=== PATIENT | female | born 1985 | race Caucasian/White ===

== ENCOUNTER 2019-09-16 14:14 | Outpatient (CLI) | payer OTHER, SELFPAY ==
[2019-09-16 14:27] LABS: Hematocrit 43.3 % (35.0-49.0); Hemoglobin 14.2 g/dL (12.0-15.0); Mean Corpuscular HGB Conc 32.8 g/dL (32.0-36.0); Mean Corpuscular Hemoglobin 29.3 pg (27.0-31.0); Mean Corpuscular Volume 89.3 fL (78.0-102.0); Mean Platelet Volume 9.8 fl (9.2-11.8); Platelet Count Result 256 K/mm3 (150-420); Red Blood Count 4.85 M/mm3 (4.20-5.40); White Blood Count 7.7 K/mm3 (4.8-10.8)
[2019-09-16 15:01] LABS: Anion Gap 11.3 mmol/L (7-16); Blood Urea Nitrogen 12 mg/dL (7-18); Calcium 9.5 mg/dL (8.5-10.1); Carbon Dioxide 31 mmol/L (21-32); Chloride 105 mmol/L (98-108); Estimated Glomerular Filt Rate > 60; Glucose 88 mg/dL (70-99); Osmolality Calculated 294 mOsm/kg (285-295); Potassium 4.3 mmol/L (3.5-5.1); Sodium 143 mmol/L (136-145)
== END 2019-09-16 14:15 | disposition home or self-care (01) ==
LOC: CHSLAB 14:19
PROVIDERS: PCP Family Medicine; Visit Provider Family Medicine
DX: Z01.818 Encounter for other preprocedural examination (principal)
CPT/HCPCS: 36415; 80048; 85027

== ENCOUNTER 2021-05-24 12:50 | Outpatient (CLI) | payer OTHER, SELFPAY ==
--- NOTE | ~2021-05-24 | XR_ITS ---
XR chest 2V DATE: 05/24/2021 13:14 INDICATION: Shortness of breath. Covid-positive. TECHNIQUE: PA and lateral views COMPARISON: 08/20/2017 PA and lateral chest FINDINGS: There is bilateral hyperinflation suggesting obstructive airways disease. There are numerous calcified pulmonary granulomas scattered throughout both lungs as well as bilatera l calcified hilar and mediastinal nodes. No pulmonary infiltrate or consolidation, pleural effusion or pulmonary vascular congestion or pneumo thorax. Included skeletal structures are unremarkable. IMPRESSION: Bilateral hyperinflation suggesting obstructive airways disease Old pulmonary granulomatous disease Reviewed, dictated and finalized at location A. 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
== END 2021-05-24 12:51 | disposition home or self-care (01) ==
LOC: CHSIMG 12:53
PROVIDERS: PCP Nurse Practitioner Family; Visit Provider Nurse Practitioner Family
DX: R06.02 Shortness of breath (principal); U07.1 COVID-19
CPT/HCPCS: 71046

== ENCOUNTER 2022-08-09 10:27 | Outpatient (CLI) | payer OTHER, SELFPAY ==
[2022-08-09 10:53] LABS: Basophils Absolute Auto 0.03 K/mm3 (0.00-0.10); Basophils Percent Auto 0.4 % (0.0-1.0); Eosinophils Percent Auto 1.4 % (1.0-6.0); Hematocrit 41.5 % (35.0-49.0); Hemoglobin 13.6 g/dL (12.0-15.0); Immature Granulocyte Absolute 0.02 K/mm3 (0.00-0.00); Immature Granulocyte Percent A 0.3 % (0.0-0.0); Lymphocytes Absolute Auto 2.24 K/mm3 (1.10-4.50); Lymphocytes Percent Auto 30.3 % (18.0-42.0); Mean Corpuscular HGB Conc 32.8 g/dL (32.0-36.0); Mean Corpuscular Hemoglobin 28.9 pg (27.0-31.0); Mean Corpuscular Volume 88.1 fL (78.0-102.0); Mean Platelet Volume 9.6 fl (9.2-11.8); Monocytes Absolute Auto 0.54 K/mm3 (0.10-0.90); Monocytes Percent Auto 7.3 % (2.0-11.0); Neutrophils Absolute Auto 4.5 K/mm3 (1.7-7.2); Neutrophils Percent Auto 60.3 % (50.0-70.0); Platelet Count Result 281 K/mm3 (150-420); Red Blood Count 4.71 M/mm3 (4.20-5.40); Red Cell Distribution Width 13.2 % (11.6-14.4); White Blood Count 7.4 K/mm3 (4.8-10.8)
[2022-08-09 11:34] LABS: Alanine Aminotransferase 35 U/L (14-59); Albumin Level 4.1 g/dL (3.4-5.0); Alkaline Phosphatase 80 U/L (46-116); Anion Gap 7 mmol/L (8-16); Aspartate Amino Transferase 21 U/L (15-37); Bilirubin,Total 0.5 mg/dL (0.00-1.00); Blood Urea Nitrogen 16 mg/dL (7-18); Calcium 9.1 mg/dL (8.5-10.1); Carbon Dioxide 28 mmol/L (21-32); Chloride 104 mmol/L (98-108); Cholesterol 175 mg/dL (0-200); Estimated Glomerular Filt Rate > 60; Free T4 Free Thyroxine 1.07 ng/dL (0.76-1.46); Glucose 87 mg/dL (70-99); HDL Direct 77 mg/dL (40-60); LDL Cholesterol Calculated 91 mg/dL (<130); Osmolality Calculated 288 mOsm/kg (285-295); Potassium 4.5 mmol/L (3.5-5.1); Sodium 139 mmol/L (136-145); Thyroid Stimulating Hormone 2.34 uIU/mL (0.36-3.74); Total Protein 6.9 g/dL (6.4-8.2); Triglycerides 34 mg/dL (0-150)
[2022-08-09 14:45] LABS: Ferritin 24 ng/mL (8-252); Folic Acid 11.9 ng/mL (8.6->20); Iron 65 ug/dL (50-170); Percent Iron Saturation 18 % (12-57)
[2022-08-12 04:13] LABS: Thyroid Peroxidase Antibodies <1 IU/mL (<9)
[2022-08-13 12:59] LABS: Testosterone Total 13 ng/dL (2-45)
[2022-08-14 20:46] LABS: Vitamin D 25 Hydroxy 30 ng/mL (30-100)
[2022-08-15 00:42] LABS: Estradiol, Ultrasensitive 55 pg/mL
== END 2022-08-09 10:28 | disposition home or self-care (01) ==
LOC: CHSLAB 10:30
PROVIDERS: PCP Family Medicine
DX: F41.9 Anxiety disorder, unspecified (principal); R53.83 Other fatigue; G47.00 Insomnia, unspecified; R68.82 Decreased libido; N95.1 Menopausal and female climacteric states; G47.9 Sleep disorder, unspecified
CPT/HCPCS: 36415; 80053; 80061; 82306; 82670; 82728; 82746; 83540; 83550; 84144; 84403; 84439; 84443; 84481; 85025; 86376

== ENCOUNTER 2022-09-22 14:20 | Outpatient (CLI) | payer OTHER, SELFPAY | END 2022-09-22 14:21 | disposition home or self-care (01) | LOC: CHSLAB 14:23 | PROVIDERS: PCP Family Medicine | DX: R53.83 Other fatigue (principal); R68.82 Decreased libido; N95.1 Menopausal and female climacteric states | CPT/HCPCS: 36415; 83001; 83002 ==

== ENCOUNTER 2023-02-13 07:36 | Outpatient (CLI) | payer OTHER, SELFPAY ==
--- NOTE | ~2023-02-13 | US_ITS ---
EXAMINATION: US abdomen complete DATE: 02/13/2023 08:41 INDICATION: Right upper quadrant abdominal pain. TECHNIQUE: Multiple grayscale and Doppler ultrasound images of the abdomen were obtained. COMPARISON: None FINDINGS: The visualized portions of the head, body, and tail of the pancreas are normal. The liver i s normal without focal lesion. There is normal flow in main portal vein. The gallbladder is contracte d. No gallstones or sonographic Villalobos sign. The common duct is normal and measures 2 mm. The kidneys are normal in size. The spleen is normal in size. The abdominal aorta is normal. The inferior vena c jessica is normal. IMPRESSION: 1. Normal complete abdomen ultrasound. Reviewed, dictated and finalized at location A.
--- NOTE | ~2023-02-13 | US_ITS ---
EXAMINATION: US transvaginal DATE: 02/13/2023 08:41 INDICATION: Pelvic and perineal pain. TECHNIQUE: Multiple transvaginal sonographic images of the pelvis were obtained. COMPARISON: None. FINDINGS: The uterus measures 7.8 x 5.6 x 4.7 cm. There is no free fluid in the pelvis. The endometrial complex measures 15 mm in thickness. There are nabothian cysts in the cervix. The right ovary measures 3.5 x 1.8 x 1.8 cm. The left ovary measures 1.9 x 1.6 x 1.8 cm. There is normal vascular flow in the ovari es. IMPRESSION: 1. No etiology for the patient's symptoms. Reviewed, dictated and finalized at location A.
== END 2023-02-13 07:37 | disposition home or self-care (01) ==
PROVIDERS: PCP Family Medicine; Visit Provider Nurse Practitioner Family
DX: R10.11 Right upper quadrant pain (principal); T78.40XA Allergy, unspecified, initial encounter
CPT/HCPCS: 36415; 76700; 76830; 82785; 86003

== ENCOUNTER 2023-03-01 09:04 | Outpatient (CLI) | payer OTHER, SELFPAY ==
[2023-03-01 09:21] LABS: Hematocrit 40.4 % (35.0-49.0); Hemoglobin 12.9 g/dL (12.0-15.0); Mean Corpuscular HGB Conc 31.9 g/dL (32.0-36.0); Mean Corpuscular Hemoglobin 28.4 pg (27.0-31.0); Mean Platelet Volume 9.5 fl (9.2-11.8); Platelet Count Result 294 K/mm3 (150-420); Red Blood Count 4.54 M/mm3 (4.20-5.40); Red Cell Distribution Width 12.6 % (11.6-14.4); White Blood Count 6.8 K/mm3 (4.8-10.8)
[2023-03-01 09:41] LABS: Alanine Aminotransferase 31 U/L (14-59); Albumin Level 3.9 g/dL (3.4-5.0); Alkaline Phosphatase 62 U/L (46-116); Anion Gap 8 mmol/L (8-16); Aspartate Amino Transferase 14 U/L (15-37); Bilirubin,Total 0.6 mg/dL (0.00-1.00); Blood Urea Nitrogen 18 mg/dL (7-18); Calcium 9.4 mg/dL (8.5-10.1); Carbon Dioxide 30 mmol/L (21-32); Chloride 103 mmol/L (98-108); Estimated Glomerular Filt Rate > 60; Glucose 100 mg/dL (70-99); Osmolality Calculated 293 mOsm/kg (285-295); Potassium 4.5 mmol/L (3.5-5.1); Sodium 141 mmol/L (136-145); Total Protein 6.5 g/dL (6.4-8.2)
== END 2023-03-01 09:05 | disposition home or self-care (01) ==
LOC: CHSLAB 09:06
PROVIDERS: PCP Family Medicine; Visit Provider Nurse Practitioner Family
DX: R10.11 Right upper quadrant pain (principal)
CPT/HCPCS: 36415; 80053; 85027

== ENCOUNTER 2023-03-13 01:37 | Day surgery (SDC) | payer OTHER, SELFPAY ==
[2023-03-02 13:05] VITALS: BMI 20.5
--- NOTE | 2023-03-10 10:51 | SUR.PREOP ---
Patient called regarding upcoming procedure. Message left on her voicemail reviewed preop instructions and appointment times.
[2023-03-13 09:32] VITALS: BMI 21.7
[2023-03-13 09:35] VITALS: BP 126/89; PULSE 78; RESP 20; TEMP 36.4; O2SAT 100
--- NOTE | 2023-03-13 09:54 | WPDHPUPDATE1 ---
History and Physical Update Update Date/Time: 03/13/23 09:54 History and Physical has been reviewed, including an updated exam of the patient. There are NO changes in the patient's condition. Risks, benefits, and alternatives have been discussed and questions answered. Patient agrees to proceed with procedure.
[2023-03-13] MEDS: LACTATED RINGERS 1,000 ML 150 ML IV CONT (10:01)
[2023-03-13] MEDS: BENZOCAINE (*SP) 60 ML SPRAY CAN (HURRICAINE) 1 SPRAY MUCOUS MEM (10:04)
--- NOTE | 2023-03-13 10:07 | WPDANESEPPF ---
Anes - Initial Pre Proc Eval Procedure: Operation Date: 03/13/23 14:45 Proposed Procedures p Esophagogastroduodenoscopy - Jorge Luis Lewis MD Date/Time: 03/13/23 10:07 Surgeon: Jorge Luis Lewis MD Pre Op Diagnosis: Right Upper Quadrant Pain Patient Data Age: 37 Gender: F Height: 1.73 m Weight: 64.9 kg Last Vital Signs Temp 97.5 F L 03/13/23 09:35 Pulse 78 03/13/23 09:35 Resp 20 03/13/23 09:35 BP 126/89 03/13/23 09:35 Pulse Ox 100 03/13/23 09:35 O2 Del Method Room Air 03/13/23 09:35 Allergies Allergy/AdvReac Type Severity Reaction Status Date / Time clindamycin Allergy Unknown Unknown Verified 03/13/23 09:30 erythromycin base Allergy Unknown Unknown Verified 03/13/23 09:30 Home Medications Medication Instructions Recorded Confirmed Type black cohosh 200 mg capsule 200 mg PO DAILY 02/27/23 03/13/23 History cholecalciferol (vitamin D3) 100 100 mcg PO DAILY 02/27/23 03/13/23 History mcg (4,000 unit) tablet magnesium salicylate 325 mg tablet 325 mg PO DAILY 02/27/23 03/13/23 History omega 1-oei-wxg-fish oil 300 1 cap PO DAILY 02/27/23 03/13/23 History mg-1,000 mg capsule (Fish Oil) vit C 30 mg-s.peraza 250 mg-celery 1 cap PO DAILY 02/27/23 03/13/23 History seed 75 mg-grape seed extrt capsule (Tart Peraza) Patient hx anesthesia problems: none Family hx anesthesia problems: none Results Review: All pre-operative results and documents have been reviewed as part of the pre-operative evaluation. [facility] Past Medical History Medical History BRYSON (generalized anxiety disorder) Surgical History Surgical History No history of previous surgery Family History Family History Father Hypertension Social History Social History Smoking status: Never smoker Substance use: never Lack of Transportation: No Lack of Food: Never True Current Housing: I Have Housing Concerned About Future Housing: No Difficulty Paying Gas/Electric Bills: No Difficulty Paying for Meds: No Currently Unemployed: No Education: Master's Degree or Higher Difficulty w/ Childcare or Family Care: No Living arrangements: with family Additional living arrangements comments: . 2 Children. Occupation/Education: occupation Additional occupation/education comments: [employer] Final PreProcedure Day of Procedure 03/13/23 10:07 Patient weight: normal Heart: regular rate and rhythm Lungs: clear to auscultation Airway: Mallampati scale class II Neurological: alert and oriented Last oral intake: >/= 8 hours ASA classification: II Emergent: no Anesthetic plan: proceed Anesthesia type and monitoring: general GIVS and standard monitoring Results Review: All pre-operative results and documents have been reviewed as part of the pre-operative evaluation. Informed Consent: The patient's anesthetic plan and its attendant risks and benefits were discussed with the patient/family/POA. Questions were solicited and answers provided to the satisfaction of the patient/family/POA.
[2023-03-13 10:13] VITALS: BP 102/59; PULSE 77; RESP 20; O2SAT 99
[2023-03-13 10:23] VITALS: BP 103/67; PULSE 77; RESP 15; O2SAT 100
[2023-03-13 10:33] VITALS: BP 129/77; PULSE 79; RESP 18; O2SAT 100
== END 2023-03-13 10:36 | disposition home or self-care (01) ==
PROVIDERS: PCP Family Medicine; Visit Provider Internal Medicine Gastroenterology
PROC: 0DJ08ZZ Inspection of Upper Intestinal Tract, Via Natural or Artificial Opening Endoscopic (ICD-10-PCS; CPT 43235; principal; 2023-03-13 14:45)
DX: K29.70 Gastritis, unspecified, without bleeding (principal); K31.89 Other diseases of stomach and duodenum; F41.1 Generalized anxiety disorder
CPT/HCPCS: 43239; 87081; 88305; J7120

== ENCOUNTER 2024-03-29 08:43 | Outpatient (CLI) | payer OTHER, SELFPAY ==
--- NOTE | ~2024-03-29 | XR_ITS ---
CHEST RADIOGRAPH, PA AND LATERAL CLINICAL HISTORY: R05.3 - Chronic cough with SOB x 4 weeks . COMPARISON: 05/24/2021 and dating back to 08/20/2017 TECHNIQUE: PA and lateral views of the chest. FINDINGS Calcified lymph nodes within the bilateral pulmonary max. The remainder of the cardiomediastinal silhouette is otherwise unremarkable. Redemonstration of multiple scattered well-circumscribed subcentimeter nodules, suggesting prior gran ulomatous disease. These are unchanged dating back to 2018. The lungs are otherwise clear. Visualized osseous structures and soft tissues are unremarkable. IMPRESSION: No focal infiltrate or effusion. Reviewed, dictated and finalized at location A. 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
== END 2024-03-29 08:44 | disposition home or self-care (01) ==
LOC: CHSLAB 08:45
PROVIDERS: PCP Family Medicine; Visit Provider Family Medicine
DX: R05.3 Chronic cough (principal)
CPT/HCPCS: 71046

== ENCOUNTER 2024-04-03 09:50 | Outpatient (CLI) | payer OTHER, SELFPAY | END 2024-04-03 09:51 | disposition home or self-care (01) | LOC: CHSCARD 09:52 | PROVIDERS: PCP Family Medicine; Visit Provider Family Medicine | DX: R05.9 Cough, unspecified (principal) | CPT/HCPCS: 94060; 94726; 94729 ==

== ENCOUNTER 2024-08-07 10:48 | Outpatient (CLI) | payer OTHER, SELFPAY ==
--- NOTE | ~2024-08-07 | US_ITS ---
EXAMINATION: US venous doppler LE RT DATE: 08/07/2024 11:12 INDICATION: Right lower leg pain TECHNIQUE: Grayscale ultrasound images without and with compression and Doppler ultrasound images of the right lower extremity veins were obtained. COMPARISON: None. FINDINGS: The visualized portions of right common femoral vein, profunda (deep) femoral vein, femoral vein, pop liteal vein, peroneal trunk, posterior tibial veins, peroneal veins, gastrocnemius vein and greater s aphenous vein outflow are patent. IMPRESSION: 1. No deep venous thrombosis in the right lower limb. Reviewed, dictated and finalized at location A.
--- OUTSIDE RECORDS SUMMARY | 2024-08-07 12:23 | XMS_ITS | Clinical Summary ---
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 Gender Identity Not on file Sexual Orientation Not on file Last Filed Vital Signs Vital Sign Reading Time Taken Comments Blood Pressure - - Pulse - - Temperature - - Respiratory Rate - - Oxygen Saturation - - Inhaled Oxygen Concentration - - Weight 59 kg (130 lb) 03/08/2022 8:21 AM CDT Height 172.7 cm (5' 8 ) 03/08/2022 8:21 AM CDT Body Mass Index 19.77 03/08/2022 8:21 AM CDT Plan of Treatment Health Maintenance Due Date Last Done Comments Cervical Cancer Screening Pa p Smear (Age 30 to 64) Every 3 Years 1986 Annual Physical 1989 Hepatitis C 2004 DTaP, Tdap and Td Vaccines ( 1 - Tdap) 2005 Hepatitis B Vaccines (1 of 3 - 19+ 3-dose series) 2005 Cervical Cancer Screening Pa p with HPV Testing (Age 30 to 64) Every 5 Years 2016 Cervical Cancer Screening with HPV 2016 COVID-19 Vaccine (2023-2 5 season) 2024 HPV Vaccines Aged Out No longer eligi ble based on patient's age to complete this topic Meningococcal B Vaccine Aged Out No l onger eligible based on patient's age to complete this topic Meningococcal Vaccine Aged Out No krista dimas eligible based on patient's age to complete this topic Pneumococcal Vaccine: Pediat rics (0 to 5 Years) and At-Risk Patients (6 to 64 Years) Aged Out No longer eligible b ased on patient's age to complete this topic RSV Immunizations Under 20 Months Aged Out No longer eligible based on patient's age to complete this topic Insurance [employer] Care Teams Dental Office Coordinator Relationship Specialty Start Date End Date None, Provider, PCP - General 12/24/19
== END 2024-08-07 10:49 | disposition home or self-care (01) ==
LOC: CHSIMG 10:50
PROVIDERS: PCP Family Medicine; Visit Provider Family Medicine
DX: I82.491 Acute embolism and thrombosis of other specified deep vein of right lower extremity (principal)
CPT/HCPCS: 93971

== ENCOUNTER 2024-09-30 21:39 | Emergency (ER) | payer OTHER, SELFPAY ==
--- NOTE | ~2024-09-30 | XR_ITS ---
XR finger 2nd RT min 2V Ordering provider: Omero Zazueta MD History: . dog bite PROXIMAL 2ND DIGIT, RIGHT HAND. . Comparison: None. FINDINGS: BONES: Tiny bony fragment is seen opposite the distal interphalangeal joint. Otherwise, No acute frac ture or dislocation. JOINT SPACES: Normal. SOFT TISSUES: Normal. IMPRESSION: Tiny bony fragment near to the distal interphalangeal joint which may be a chip fracture. Otherwise, No acute osseous abnormality. Reviewed, dictated and finalized at location A.
--- OUTSIDE RECORDS SUMMARY | 2024-09-30 21:41 | XMS_ITS | Data Portability ---
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 Patient will come back in a year unless there are new symptoms. [email or web address] Not available 01/10/2023 12:02:13 Plan of Treatment Reminders Order Date Submit Date Provider Last Modified By Organization Details Last Modified Time Details Appointments None record ed. Lab None record ed. Referral None record ed. Procedures None record ed. Surgeries None record ed. Imaging None record ed. Medication Orders None record ed. Patient TargetsNo targets recorded. Patient InstructionsNo instructions recorded. Reason for Referral None Reported. Problems Name Problem SNOMED Code Status Onset Date Resolution Date Notes Provider Name and Address Organization Details Recorded Time Placenta previa with hemorrhag e - not delivered [id number] Active 2013 Hemorrhage from placenta previa, antepartum ;Recorded Elsewhere: No Locatio n: [facility] rce: EHR Chroni c: N Practice ID: 0001 Billa ble Time: 02:00:00 PM Not Available [facility] 0 15:50:23 Routine care Active 2013 Supervisio n of other normal ; Recorded Elsewhere: No Locatio n: [facility] rce: EHR Chroni c: N Practice ID: 0001 Billa ble Time: 10:00:00 AM Not Available [facility] 0 15:50:23 test positive 375818696 Active 2013 examinatio n or test, positive result;Rec orded Elsewhere: No Locatio n: [facility] rce: EHR Chroni c: N Practice ID: 0001 Billa ble Time: 02:30:00 PM Not Available [facility] 0 15:50:23 Threatene d miscarria ge 93027039 Active 2012 Threatened , antepartum ;Recorded Elsewhere: No Locatio n: [facility] rce: EHR Chroni c: N Practice ID: 0001 Billa ble Time: 03:30:00 PM Not Available [facility] 0 15:50:23 Missed miscarria ge 56241427 Active 2012 Missed ;R ecorded Elsewhere: No Locatio n: [facility] rce: EHR Chroni c: N Practice ID: 0001 Billa ble Time: 04:00:00 PM Not Available [facility] 0 15:50:23 Screening for malignant neoplasm of cervix Active 2011 Screening for malignant neoplasms of the cervix;Rec orded Elsewhere: No Locatio n: [facility] rce: EHR Chroni c: N Practice ID: 0001 Billa ble Time: 10:30:00 AM Not Available [facility] 0 15:50:24 Specializ ed medical examinati on Active 2011 Routine gynecologi sagrario examinatio n;Practice ID: 0001 Not Available [facility] 0 15:50:24 anatomy study Active 2011 [facility] SURVEY;Pra ctice ID: 0001 Not Available [facility] 0 15:50:24 Primigrav iglesia 567045769 Active 2011 Supervisio n of normal first ; Practice ID: 0001 Not Available [facility] 0 15:50:24 Poor growth affecting managemen t 944233929 Active 2011 GROWTH POOR SGA;Practi ce ID: 0001 Not Available [facility] 0 15:50:24 Delivery normal 49605476 Active 2011 Normal delivery;P ractice ID: 0001 Not Available [facility] 0 15:50:24 Single live from hernandez 083243624 Active 2011 Mother with single liveborn;P olive ID: 0001 Not Available [facility] 0 15:50:25 Postpartu m care Active 2011 Routine follow-up; Practice ID: 0001 Not Available [facility] 0 15:50:25 Postopera tive follow-up visit Active 2012 Follow-up examinatio n, following other surgery;Pr actice ID: 0001 Not Available [facility] 0 15:50:25 Amenorrhe a 16679615 Active 2013 AMENORRHEA ;Practice ID: 0001 [facility] 0 15:50:25 Uterine size for dates discrepan cy 672390117 Active 2013 UTERINE SIZE KRISTI-ANTEPA R;Practice ID: 0001 [facility] 0 15:50:25 Ultrasono graphy Active 2013 screening for malformati on using ultrasonic s;Practice ID: 0001 Not Available [facility] 0 15:50:25 screening Active 2013 screening for malformati on using ultrasonic s;Practice ID: 0001 [facility] 0 15:50:25 Congenita l malformat ion 465931174 Active 2013 screening for malformati on using ultrasonic s;Practice ID: 0001 [facility] 0 15:50:25 Adult health examinati on Active 2014 Routine general medical examinatio n at a health care facility;P devoratice ID: 0001 Not Available [facility] 0 15:50:27 test negative 001218892 Active 2014 Negative Test;Pract dian ID: 0001 Not Available [facility] 0 15:50:[address] Concept Active 2015 Encntr for social services counselor exam (general) (routine) w/o abn findings;P olive ID: 0001 Not Available [facility] 0 15:50:[address] Concept Active 2018 Anxiety disorder, unspecifie d;Practice ID: 0001 Not Available [facility] 0 15:50:27 Premenstr ual tension syndrome 66743523 Active 2018 Premenstru al tension syndrome;P devoratice ID: 0001 Not Available [facility] 0 15:50:[address] Concept Active 2015 Encntr for general adult medical exam w/o abnormal findings;R ecorded Elsewhere: No Locatio n: [facility] rce: EHR Chroni c: N Practice ID: 0001 Billa ble Time: 04:00:00 PM Not Available [facility] 0 15:50:28 Finding of female genital functions 636298885 Active 2018 Unspecifie d condition associated with female genital organs and menstrual cycle;Luis rded Elsewhere: No Locatio n: [facility] rce: EHR Chroni c: N Practice ID: 0001 Billa ble Time: 03:00:00 PM Not Available [facility] 0 15:50:29 Problem Notes None recorded. Procedures Surgical History Date Name Laterality Status Provider Name and Address Organization Details Recorded Time 9 Date of Last Pap Smear completed Yelena Griffin [facility] 01/10/2023 12:03:31 Imaging Results None recorded. Procedure Notes None recorded. Medical Equipment None Reported. Allergies Allergen ID Allergen Name Allergen Category Reaction Reaction Severity Criticality Documentation Date Start Date Code Code System Note Provider Name and Address Organization Details Recorded Time 41123 erythromy asher medicatio n Not available Not available Not available 04/24/2020 4053 RxNorm Comme nt: [facility]at [facility]; Not Available [facility] 0 14:24:39 Medications Name Sig Start Date Stop Date Status Note LastModified by Organization Details LastModified Time Aviane 0.1 mg-20 mcg tablet take 1 tablet by oral route every day 09/09 completed Prescrib ed Elsewher e: No [facility] M odify By: [email or web address] trick En counter DateTime : 02/12/20 13 12:30:00 PM Not Available Not Available Not Available Cytotec 200 mcg tablet insert 4 by by vagina route all at once 02/11 completed Prescrib ed Elsewher e: No Locat ion: Unique art [facility] odify By: [email or web address] trick En counter DateTime : 01/31/20 13 04:00:00 PM Not Available Not Available Not Available Motrin 800 mg tablet take 1 tablet (800MG) by oral route 3 times every day with food 02/11 completed Prescrib ed Elsewher e: No Locat ion: [facility] odify By: [email or web address] trick En counter DateTime : 01/31/20 13 04:00:00 PM Not Available Not Available Not Available Prozac 20 mg capsule take 1 capsule by oral route every day in the morning 7 days prior to cycle and week of cycle 01/10 completed Prescrib ed Elsewher e: No Locat ion: [facility] odify By: ana spencer DateTime : 06/13/19 19 03:00:00 PM Not Available Not Available Not Available Vitamin D2 1,250 mcg (50,000 unit) capsule take 1 capsule by oral route every week 06/22 completed Prescrib ed Elsewher e: No Locat ion: [facility] odify By: [email or web address] trick En counter DateTime : 10/30/19 14 05:09:34 PM Not Available Not Available Not Available progester one micronize d 100 mg capsule 01/10 completed Not Available Not Available Not Available Vitamin 27 mg iron-0.8 mg tablet take 1 tablet by oral route every day 06/22 completed Prescrib ed Elsewher e: No Locat ion: [facility] odify By: [email or web address] trick En counter DateTime : 07/12/19 12 10:30:00 AM Not Available Not Available Not Available Samra 0.35 mg tablet take 1 tablet by oral route every day 06/13 completed Prescrib ed Elsewher e: No Locat ion: [facility] odify By: [email or web address] E ncounter DateTime : 06/29/19 17 06:00:00 PM Not Available Not Available Not Available Calcio Jose G 500 mg tablet 02/11 completed Prescrib ed Elsewher e: Yes Loca tion: [facility] odify By: [email or web address] trick En counter DateTime : 01/15/20 13 12:00:00 PM Not Available Not Available Not Available Multi Vitamin 9 mg iron/15 mL oral liquid 01/10 completed Prescrib ed Elsewher e: Yes [facility] By: [email or web address] trick En counter DateTime : 06/22/19 16 04:00:00 PM Not Available Not Available Not Available Vitals Date Recorded Body height Body mass index (BMI) Body weight Systolic And Diastolic Provider Name and Address Organization Details Last Updated DateTime 01/10/2023 172.72 cm 21.6 kg/m2 60264.12 g 120/78 mm[Hg] Yelena Griffin [facility] 01/10/2023 12:50:11 Social History Question Answer Notes LastModified by Organizat ion Details LastModified Time Tobacco Smoking Status Never Smoker Yelena Griffin [facility], [facility] 01/10/2023 12:07:46 Are You Blind Or Do You Have Difficulty Seeing? No Information n ot available 01/10/2023 What Is Your Level Of Caffeine Consumption? None Information not available 01/10/2023 How Much Tobacco Do You Chew? None Information not available 01/10/2023 In The 14 Days Before Symptom Onset, Have You Had Close Contact With A Laboratory-confirm ed COVID-19 While That Case Was Ill? No Information n ot available 01/10/2023 In The 14 Days Before Symptom Onset, Have You Had Close Contact With A Person Who Is Under Investigation For COVID-19 While That Person Was Ill? No Information not available 01/10/2023 Have You Been To An Area Known To Be High Risk For COVID-19? No Information not available 01/10/2023 Are You Deaf Or Do You Have Serious Difficulty Hearing? No Information not available 01/10/2023 What Type Of Diet Are You Following? REGULAR Information n ot available 01/10/2023 What Is The Highest Grade Or Level Of School You Have Completed Or The Highest Degree You Have Received? [id number] Information not available 01/10/2023 Are There Any Guns Present In Your Home? Yes Information not available 01/10/2023 Do You Use Protection During Sex? No Information not available 01/10/2023 Do You Use Your Seat Belt Or Car Seat Routinely? Yes Information not available 01/10/2023 Do You Have Smoke And Carbon Monoxide Detectors In Your Home? Yes Information not available 01/10/2023 How Much Tobacco Do You Smoke? No Information not available 01/10/2023 Do You Use Sunscreen Routinely? Yes Information not available 01/10/2023 Have You Used IV Drugs? No Information not available 01/10/2023 Do You Have Difficulty Walking Or Climbing Stairs? No Information not available 01/10/2023 Sex: Unknown Functional Status Question Answer Note LastModified by Organizat ion Details LastModified Time Do you use any illicit or recreational drugs? No Information not available 01/10/2023 What is your level of alcohol consumption? None Information not available 01/10/2023 Are you able to walk? YESWOREST Information not available 01/10/2023 Are you able to care for yourself? 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 No Information not available 01/10/2023 What is your exercise level? Heavy Information not available 01/10/2023 Mental Status Question Answer Note LastModified by Organization D etails LastModified Time Do you feel stressed (tense, restless, nervous, or anxious, or unable to sleep at night)? [id number] [facility] Information not available 01/10/2023 Family History Nothing Reported Notes:Maternal grandmother: Cancer, breast Medical History Condition Response Allergies (Food, seasonal, environmental ) N Other N Breast Cancer N Drug/Latex Allergies/Reactions N Blood Transfusion N Dermatologic Disorders N Lung Disease N Defects or Inherited Disease N Breast Problem N Gestational Diabetes N Hematologic disorders N Anesthesia Complications N History of STI N Deep Vein Thrombosis N Polycystic ovary syndrome N Anxiety Disorder N Autoimmune disease N Arthritis N Infertility N Polyps N Acid Reflux (GERD) N History of abnormal pap N Cancer N Stroke N Varicosities N Neurologic/Epilepsy N Endometriosis N High Cholesterol N Headaches N Fibromyalgia N Kidney Disease N Heart Problems N Kidney or Bladder Problems N Thyroid Problems N GI Problems N Eating Disorder N Anemia N Art (IVF or FET) N Psychiatric Illness N Ovarian Cancer N Diabetes N Pulmonary (TB, Asthma) N Hepatitis/Liver Disease N No Past Medical History N Eczema N Urinary Tract Infection N Abuse/Domestic Violence N Asthma N Trauma/Violence N Depression/ depression N Heart Disease N Pre-Eclampsia N Hypertension N Osteoporosis N Thrombophilias N Gynecological History Statement/Question Response Flow Heavy Date of LMP 01/06/2023 On BCP's at Conception? N N Was last menstrual period normal N STIs/STDs N HPV Vaccine N Duration of Flow (days) 5 Current Control Method Partner Vas ectomy Age at First Child 27 Frequency of Cycle (Q days) 28 Sexually Active? Y None Age of first menstrual cycle 15 Date of Last Pap Smear 06/13/2018 Sexual Problems? N Desired Control Method None LMP Definite N Obstetrics History GPAL:G 3 P 0 0 1 2 Type Value Spontaneous 1 Living 2 Total 3 Past Encounters Encounter ID Performer Location Encounter Start Date Encounter Closed Date Diagnosis/Indication Diagnosis SNOMED-CT Code Diagnosis ICD10 Code Diagnosis Note [id number] MARLA Gee [place] [address] [address] 01/10/2023 11:44:15 01/10/2023 14:07:20 Gynecologic examination 23323840 Z01.419 Z11.51 Take Calcium with Vitamin D 1200mg daily if not receiving in daily diet. It is strongly advised to have an annual flu shot and up can obtain at most pharmacies . If you have not had a TDap shot in the last 10 years you should obtain one as well. Discussed with patient & provided with informatio n regarding Gardisil vaccine to prevent the 4 strains for HPV that cause cervical cancer if under age 26. Encourage safe sexual practices, to use condoms and limit partners if not already in a monogamous relationsh ip. Do monthly self breast exams. Have mammogram yearly or every other year depending on family history. BRCA testing is now available for patients with strong genetic history of female cancer. If interested contact the office. Engage in daily exercise of low impact aerobic exercise 45-60 minutes 4-5 times weekly. Avoid tobacco and illicit drugs as well as using moderation with alcohol intake less than 1-2 8 oz beverages daily. This lifestyle behavior pattern will lead to less health conditions and longer life span. If BMI greater than 25 weight watchers or dietary consult advised. Patient received above instructio ns, and questions have been answered. If you have any questions please call or respond to this email. Patient was made aware of the patient portal and may obtain a paper copy of today's plan if desired. WWEBC - partner with vasectomyn o hx of abnormal papslast pap 2019 - normalpap updated todaySTI testing declinedUT D with PCPRTC in 1 year or sooner if needed Health Concerns Section Related Observation LastModified by Organization Detai ls LastModified Time None Recorded Concern Status LastModified by Organization Details LastModified Time None Recorded Advance Directives Directive None Recorded Payers Encounter Date Sequence Insurance Name Policy Number Policy Renee Covered Member ID Renee Member ID Guarantor Name 01/10/2023 1 [employer] [id number] Supriya Salinas [id number] Supriya Salinas Notes Date Note Type Note Provider Name and Address Organization Details Recorded Time 01/10/2023 text/html Annual GYNReport ed bypatient.Menstrua l cycle:Normal menses Urinary symptoms:No hematuria; No incontinence Vulva:No genital lesion Vagina:Normal vaginal discharge Breast:No breast pain; No breast lump; No nipple discharge Current Contraception:Sati sfied with current contraception; Partner had vasectomy Sexual complaints:No sexual complaints; No pain during intercourse; Normal libido Menopausal Symptoms:No menopausal symptoms; Normal vaginal lubrication Psychological symptoms:No depression; No anxiety; No PMDD Preventive measures:Encourage self breast examination; Encourage regular exercise; Encourage no tobacco use; Encourage regular mammograms starting age 40 MARLA Gee [address], [place], [address], [facility] 01/10/2023 14:01:25 OBGyn Episode Ob Episode Information Episode Created Date Number of Fetuses Patient Bloodtype Patient rh Status Prepregnancy Weight lbs Domestic Partner Domestic Partner Phone Father Name Fundraising Assistant Status 01/11/20 23 1 CLOSED Fetus Data First Name Last Name Admitted to NICU Weight (g) Sex Living Outcome Pediatric Complications Fetus ID Race Codes Race Delivery Type [id number] Aldo Calculation Initial Aldo Date Initial Exam Date Initial Exam Provider Initial Ultrasound Date Last Menstrual Period Date Ultra Sound Weeks Gestation 0 Eighteen To Twenty Week Aldo Update Ultra Sound Date Fundal Height At Umbil Quickening Date Ultra Sound Latest Weeks Gestation Final Aldo Confirmed By Final Aldo Confirmed Date Final Aldo Date Ultra Sound Latest Days Gestation 0 0 Menstrual History Last Menstrual Date Menses Monthly On Bcp Conception Prior Menses Frequency Hcg Plus Date Menarche Onset Age Delivery Information Delivery Date Delivery Type Labor Anesthesia Weeks Gestation Incision Type Labor Labor Length Hrs Delivered By Post Complications Tubal Sterilization Discharge Date Comments 3 Discharge Information Feeding Method Contraceptive Method Maternal HG B and HCT Levels Ob Episode Information Episode Created Date Number of Fetuses Patient Bloodtype Patient rh Status Prepregnancy Weight lbs Domestic Partner Domestic Partner Phone Father Name Fundraising Assistant Status 01/11/20 23 1 CLOSED Fetus Data First Name Last Name Admitted to NICU Weight (g) Sex Living Outcome Pediatric Complications Fetus ID Race Codes Race Delivery Type 3175.14 4 M Full Term [id number] Vaginal Delivery Aldo Calculation Initial Aldo Date Initial Exam Date Initial Exam Provider Initial Ultrasound Date Last Menstrual Period Date Ultra Sound Weeks Gestation 0 Eighteen To Twenty Week Aldo Update Ultra Sound Date Fundal Height At Umbil Quickening Date Ultra Sound Latest Weeks Gestation Final Aldo Confirmed By Final Aldo Confirmed Date Final Aldo Date Ultra Sound Latest Days Gestation 0 0 Menstrual History Last Menstrual Date Menses Monthly On Bcp Conception Prior Menses Frequency Hcg Plus Date Menarche Onset Age Delivery Information Delivery Date Delivery Type Labor Anesthesia Weeks Gestation Incision Type Labor Labor Length Hrs Delivered By Post Complications Tubal Sterilization Discharge Date Comments 2 39 Discharge Information Feeding Method Contraceptive Method Maternal HG B and HCT Levels Ob Episode Information Episode Created Date Number of Fetuses Patient Bloodtype Patient rh Status Prepregnancy Weight lbs Domestic Partner Domestic Partner Phone Father Name Fundraising Assistant Status 01/11/20 23 1 CLOSED Fetus Data First Name Last Name Admitted to NICU Weight (g) Sex Living Outcome Pediatric Complications Fetus ID Race Codes Race Delivery Type 3175.14 4 M Full Term [id number] Vaginal Delivery Aldo Calculation Initial Aldo Date Initial Exam Date Initial Exam Provider Initial Ultrasound Date Last Menstrual Period Date Ultra Sound Weeks Gestation 0 Eighteen To Twenty Week Aldo Update Ultra Sound Date Fundal Height At Umbil Quickening Date Ultra Sound Latest Weeks Gestation Final Aldo Confirmed By Final Aldo Confirmed Date Final Aldo Date Ultra Sound Latest Days Gestation 0 0 Menstrual History Last Menstrual Date Menses Monthly On Bcp Conception Prior Menses Frequency Hcg Plus Date Menarche Onset Age Delivery Information Delivery Date Delivery Type Labor Anesthesia Weeks Gestation Incision Type Labor Labor Length Hrs Delivered By Post Complications Tubal Sterilization Discharge Date Comments 4 40 Discharge Information Feeding Method Contraceptive Method Maternal HG B and HCT Levels
[2024-09-30 21:44] VITALS: BP 161/98; PULSE 120; RESP 18; TEMP 36.8; O2SAT 99
--- NOTE | 2024-09-30 21:55 | ED.ANIMALBIT ---
HPI - Animal Bite General Chief Complaint: Animal Bite Stated Complaint: dog bite Time Seen by Provider: 09/30/24 21:53 Source: patient Mode of arrival: ambulatory Limitations: no limitations History of Present Illness HPI narrative: patient is a 38-year-old female with significant past medical history that presents today for a dog bite. Patient was bit by a dog was having a seizure that she thought was done with the postnasal stay and she reached into given oral medication and it bit down on her 2nd right finger. There is a laceration on the top and bottom Of finger. they are pretty linear and clean cut bites. She is not allergic to any antibiotics. MD complaint: animal bite Onset (ago): minute(s) Animal: dog Description of animal: immunizations unknown Mechanism: bite Location: other ( Right hand 2nd finger) Location - Extremities: Right: hand Pain description: dull Severity scale (1-10): 3 Context: unprovoked Associated symptoms: none Treatments prior to arrival: irrigation and antibiotic ointment Related Data Patient tetanus UTD: No Home Medications ?Medication ?Instructions ?Recorded ?Confirmed ?Last Taken ?Type cholecalciferol (vitamin D3) 100 100 mcg PO DAILY 02/27/23 08/07/24 03/12/23 History mcg (4,000 unit) tablet magnesium salicylate 325 mg tablet 325 mg PO DAILY 02/27/23 08/07/24 03/12/23 History progesterone micronized 100 mg 100 mg PO QAM 03/29/24 08/07/24 Unknown History capsule spironolactone 100 mg tablet 100 mg PO DAILY 03/29/24 08/07/24 Unknown History testosterone 1 pump topical DAILY 03/29/24 08/07/24 Unknown History thyroid (pork) 90 mg tablet ([employer]CH[employer]IC 90 mg PO DAILY 03/29/24 08/07/24 Unknown History Thyroid) Allergies Allergy/AdvReac Type Severity Reaction Status Date / Time clindamycin Allergy Unknown Unknown Verified 08/07/24 10:23 erythromycin base Allergy Unknown Unknown Verified 08/07/24 10:23 Review of Systems Review of Systems: All systems reviewed & are unremarkable except as noted in HPI and below Constitutional: Constitutional: Reports as per HPI Eyes: Eyes: Reports no additional eye complaints ENT: Reports system reviewed and no additional complaints, except as documented Cardiovascular: Cardiovascular: Reports no additional cardiovascular complaints Respiratory: Respiratory: Reports no additional respiratory complaints Gastrointestinal: Gastrointestinal: Reports no additional gastrointestinal complaints Genitourinary: Genitourinary: Reports no additional female genitourinary complaints Musculoskeletal: Musculoskeletal: Reports as per HPI and Reports arthralgias ( right hand 2nd finger) Integumentary/Breasts: Skin/Breast: Reports system reviewed and no additional complaints, except as docu Neurologic: Reports system reviewed and no additional complaints, except as documented Psychiatric: Psychiatric: Reports no additional psychiatric complaints Endocrine: Endocrine: Reports no additional endocrine complaints Hematologic/Lymphatic: Hematologic/Lymphatic: Reports no additional hematologic/lymphatic complaints Allergic/Immunologic: Allergic/Immunologic: Reports no additional allergic/immunologic complaints [facility] Past Medical History Medical History (Updated 09/30/24 @ 22:17 by Omero Zazueta MD) BRYSON (generalized anxiety disorder) Surgical History Surgical History No history of previous surgery Family History Family History Father Hypertension Social History Social History Smoking status: Never smoker Substance use: never Lack of Transportation: No Lack of Food: Never True Current Housing: I Have Housing Concerned About Future Housing: No Difficulty Paying Gas/Electric Bills: No Difficulty Paying for Meds: No Currently Unemployed: No Education: Master's Degree or Higher Difficulty w/ Childcare or Family Care: No Living arrangements: with family Additional living arrangements comments: . 2 Children. 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 Exam Const: General: healthy appearing and no acute distress Nutritional Appearance: well nourished Orientation/consciousness: patient oriented x3 HENMT: Head: normal to inspection Ears: external ears normal Face/Nose/Sinus: Normal external nose present Face and sinus: normal facial exam Mouth: Yes Normal oral and palatal mucosa present Eyes: Conjunctivae: conjunctivae normal Pupils: Equal, round and reactive pupils present EOM: EOMs intact bilaterally Neck: Neck: normal visual inspection Chest: Chest palpation & inspection: normal inspection of the chest Resp: Effort & Inspection: normal respiratory effort Auscultation: clear to auscultation bilaterally Cardio: Rate: regular rate Rhythm: regular rhythm GI: GI Palp: Yes Soft to palpation Back/Spine/Pelvis: Back: no CVA tenderness Skin: General skin exam: normal color Rashes: no rashes Wounds: wounds noted ( laceration on top and bottom right 2nd finger) Neuro: General: patient oriented x3 Cranial nerves: Yes Nystagmus not present Speech: normal speech Extrem: General: normal to inspection Psych: Mental Status: mental status grossly normal Affect: normal affect Attitude: cooperative Course Vital Signs Vital signs: Vital Signs Temperature 98.3 F 09/30/24 21:44 Pulse Rate 120 H 09/30/24 21:44 Respiratory Rate 18 09/30/24 21:44 Blood Pressure 161/98 H 09/30/24 21:44 Pulse Oximetry 99 09/30/24 21:44 Oxygen Delivery Room Air 09/30/24 21:44 Temperature 98.3 F 09/30/24 21:44 Pulse Rate 120 H 09/30/24 21:44 Respiratory Rate 18 09/30/24 21:44 Blood Pressure 161/98 H 09/30/24 21:44 Pulse Oximetry 99 09/30/24 21:44 Oxygen Delivery Room Air 09/30/24 21:44 MDM - Animal Bite MDM Narrative Medical decision making narrative: will clean the wound good with Betadine and wrapped wound after it is thoroughly clean. Will not stitch or glue wound because it will make it more prone to infection. Will send home with Augmentin will start her on Augmentin here and send her home with rest to her pharmacy. Xray showed tiny tiny chip in DIP joint nothing to treat for this. Differential Diagnosis Differential diagnosis: Likely bite by animal and dog bite Medical Records Attestation: I reviewed the patient's medical records. Imaging Data Attestation: I personally reviewed and interpreted this imaging study as follows: Discharge Plan Discharge Clinical Impression: Dog bite Patient Disposition: Home Condition: Stable Instructions: Antibiotic Form, Animal Bite (ED) Additional Instructions: Wound care instructions given. Keep area clean and dry. Patient Language: Indonesian Prescriptions: New amoxicillin-pot clavulanate 875-125 mg tablet 1 tablet PO Q12H Qty: 20 0RF No Action cholecalciferol (vitamin D3) 100 mcg (4,000 unit) tablet 100 mcg PO DAILY magnesium salicylate 325 mg tablet 325 mg PO DAILY progesterone micronized 100 mg capsule 100 mg PO QAM Rx Instructions: off 7 days; repeat cycle testosterone 20.25 mg/1.25 gram (1.62 %) gel in metered-dose pump 1 pump topical DAILY Rx Instructions: apply 1 pump amount over max area of ONE upper arm and shoulder thyroid (pork) [[employer]IC Thyroid] 90 mg tablet 90 mg PO DAILY spironolactone 100 mg tablet 100 mg PO DAILY Airsupra 90-80 mcg/actuation HFA aerosol inhaler 2 inh inhalation ONCE PRN (Reason: shortness of breath/ cough) Qty: 10.7 0RF Rx Instructions: as a single dose; may repeat up to 6 doses per day (12 inhalations) Follow-up/Referrals: King Louie DO [Primary Care Provider] - Time of Disposition: 22:19
[2024-09-30] MEDS: AMOXICILLIN/CLAVULANATE K 875-125 MG TAB 1 TABLET PO (22:02)
[2024-09-30] MEDS: TETANUS,DIPHTHERIA,AC PERTUSSIS ADULT 0.5 ML (ADACEL) IM (22:02)
--- NOTE | 2024-09-30 22:12 | PC.NURSE ---
Animal bite report completed and faxed to [facility] animal control.
[2024-09-30 22:25] VITALS: BP 158/103; PULSE 100; RESP 18; TEMP 36.4; O2SAT 98
== END 2024-09-30 22:27 | disposition home or self-care (01) ==
PROVIDERS: Emergency Provider Family Medicine; PCP Family Medicine
DX: S61.250A Open bite of right index finger without damage to nail, initial encounter (principal); W54.0XXA Bitten by dog, initial encounter; Z23 Encounter for immunization
CPT/HCPCS: 73140; 90471; 90715; 99283; A9270